=== PATIENT | male | born 1950 | race Caucasian/White ===

== ENCOUNTER 2018-10-05 15:43 | Emergency (ER) | payer MEDICARE, OTHER ==
--- NOTE | 2018-10-05 16:18 | EDM.PDOC ---
ED HPI GENERAL MEDICAL PROBLEM - General Stated Complaint: STOMACH PAIN,BLOOD IN STOOL Time Seen by Provider: 10/05/18 15:58 Source of Information: Reports: Patient, Family History Limitations: Reports: No Limitations - History of Present Illness INITIAL COMMENTS - FREE TEXT/NARRATIVE: 68 y.o.w.m with a H/o prostate CA S/P prostatectomy, came with his to the ed due to bloody stool since midnight. Pt has initially distension and a tender abdomen. The distension and tenderness of his abdomen improved after he passed soft bloody stool and has bloody loose stool since. No N/V no trauma, no abd. surgeries in the past. Pain 2/10 . No weakness or any other acute medical issues. BP 145/90 RR 16 Pulse ox 96% on RA Pulse 107 Temp 36.7 Onset: Today, Sudden Onset Date: 10/05/18 Onset Time: 12:00 Duration: Hour(s):, Intermittent Location: Reports: Abdomen Quality: Reports: Dull, Other (bloody stool since midnight) Severity: Moderate Improves with: Reports: None Worsens with: Reports: None Context: Reports: Other (H/O prostate CA) Associated Symptoms: Reports: No Other Symptoms Abdominal Pain Score (Numeric/FACES): 2 - Related Data Allergies Allergy/AdvReac Type Severity Reaction Status Date / Time No Known Allergies Allergy Verified 10/05/18 16:06 Home Meds: Home Meds Ciprofloxacin HCl [Cipro] 500 mg PO BID #20 tablet 10/05/18 [Rx] Lisinopril 20 mg PO DAILY 10/05/18 [History] atorvaSTATin [Lipitor] 20 mg PO DAILY 10/05/18 [History] metroNIDAZOLE [Flagyl] 500 mg PO Q8H #30 tab 10/05/18 [Rx] ED ROS GENERAL - Review of Systems Review Of Systems: See Below Constitutional: Reports: No Symptoms HEENT: Reports: No Symptoms Respiratory: Reports: No Symptoms Cardiovascular: Reports: No Symptoms Endocrine: Reports: No Symptoms GI/Abdominal: Reports: No Symptoms : Reports: No Symptoms Musculoskeletal: Reports: No Symptoms Skin: Reports: No Symptoms Neurological: Reports: No Symptoms Psychiatric: Reports: No Symptoms Hematologic/Lymphatic: Reports: No Symptoms Immunologic: Reports: No Symptoms ED EXAM, GI/ABD - Physical Exam Exam: See Below Exam Limited By: No Limitations General Appearance: Alert, WD/WN, Mild Distress Eyes: Bilateral: Normal Appearance Ears: Normal External Exam Nose: Normal Inspection Throat/Mouth: Normal Lips, Normal Voice, No Airway Compromise Head: Atraumatic, Normocephalic Neck: Normal Inspection, Supple, Non-Tender, Full Range of Motion Respiratory/Chest: No Respiratory Distress Cardiovascular: Normal Peripheral Pulses, Regular Rate, Rhythm GI/Abdominal Exam: Normal Bowel Sounds, Soft, No Organomegaly, No Distention, No Abnormal Bruit, No Mass, Pelvis Stable (Male) Exam: Deferred Rectal (Males) Exam: Deferred Back Exam: Normal Inspection, Full Range of Motion Extremities: Normal Inspection, Normal Range of Motion, Non-Tender, No Pedal Edema, Normal Capillary Refill Neurological: Alert, Oriented, CN II-XII Intact, Normal Cognition, Normal Gait, No Motor/Sensory Deficits Psychiatric: Normal Affect Skin Exam: Warm, Dry, Intact, Normal Color, No Rash Lymphatic: No Adenopathy Course - Vital Signs Text/Narrative:: 68 y.o.w.m with a H/o prostate CA S/P prostatectomy, came with his to the ed due to bloody stool since midnight. Pt has initially distension and a tender abdomen. The distension and tenderness of his abdomen improved after he passed soft bloody stool and has bloody loose stool since. No N/V no trauma, no abd. surgeries in the past. Pain 2/10 . No weakness or any other acute medical issues. BP 145/90 RR 16 Pulse ox 96% on RA Pulse 107 Temp 36.7 PE: WNWD WM with bloody stool since midnight. Imaging: CT abd/pelvis: Transverse and dec. colon thickening of the wall of the colon suggestive Ulcerative colitis, as per RAD Labs; CBC, nl INR 1.03 nl (1.03) (second draw, initially 5.13) BMP nl UA nl. BUN is 19, HGB is 17.4, HCT 53.4, however. Impression: Transverse and dec. colon thickening of the wall, suggestive Ulcerative colitis, hematochezia. S/P Prostatectomy Tx: Cipro, Flagyl 7.01 pm Consultation: Dr. Machado, GI specialist, [facility]: Repeat INR, PT. Give Cipro and Flagyl for UC as an initial Tx. Reexam: Repeat INR test was nl, pt symptoms improved. Plan: D/C with instructions. CD disk and lab results were handed to the Pt at the time of discharge from the ED Last Recorded V/S: Last Vital Signs Temp 36.4 C 10/05/18 18:41 Pulse 63 10/05/18 18:41 Resp 16 10/05/18 18:41 BP 149/83 H 10/05/18 18:41 Pulse Ox 97 10/05/18 18:41 - Orders/Labs/Meds Orders: Active Orders 24 hr Category Date Time Status Abdomen Pelvis w Cont [CT] Stat Exams 10/05/18 16:03 Taken Peripheral IV Insertion Adult [OM.PC] Routine Oth 10/05/18 16:40 Ordered Labs: Laboratory Tests 10/05/18 10/05/18 10/05/18 Range/Units 16:23 16:23 16:23 WBC 11.2 (4.5-12.0) X10-3/uL RBC 6.28 H (4.30-5.75) x10(6)uL Hgb 17.4 H (11.5-15.5) g/dL Hct 53.4 H (30.0-51.3) % MCV 85.0 (80-96) fL MCH 27.7 (27.7-33.6) pg MCHC 32.6 (32.2-35.4) g/dL RDW 12.8 (11.5-15.5) % Plt Count 176 (125-369) X10(3)uL MPV 10.1 (7.4-10.4) fL Neut % (Auto) 75.7 (46-82) % Lymph % (Auto) 15.9 (13-37) % Ashley % (Auto) 7.2 (4-12) % Eos % (Auto) 1 (1.0-5.0) % Baso % (Auto) 0 (0-2) % Neut # (Auto) 8.5 H (1.6-8.3) # Lymph # (Auto) 1.8 (0.6-5.0) # Ashley # (Auto) 0.8 (0.0-1.3) # Eos # (Auto) 0.1 (0.0-0.8) # Baso # (Auto) 0.0 (0.0-0.2) # PT 49.0 H* (8.7-11.1) INR 5.13 H* (0.89-1.13) Sodium 137 (135-145) mmol/L Potassium 3.9 (3.5-5.3) mmol/L Chloride 101 (100-110) mmol/L Carbon Dioxide 28 (21-32) mmol/L BUN 19 H (7-18) mg/dL Creatinine 1.2 (0.70-1.30) mg/dL Est Cr Clr Drug Dosing 61.68 mL/min Estimated GFR (MDRD) > 60 (>60) BUN/Creatinine Ratio 15.8 (9-20) Glucose 102 (80-116) mg/dL Calcium 10.0 (8.6-10.2) mg/dL Total Bilirubin (0.1-1.3) mg/dL Direct Bilirubin (0.10-0.20) mg/dL AST (5-25) IU/L ALT (12-36) U/L Alkaline Phosphatase (56-112) IU/L Total Protein (6.0-8.0) g/dL Albumin (3.2-4.6) g/dL Amylase (25-115) U/L Urine Color (YELLOW) Urine Appearance (CLEAR) Urine pH (5.0-6.5) Ur Specific [place] (1.010-1.025) Urine Protein (NEGATIVE) mg/dL Urine Glucose (UA) (NEGATIVE) mg/dL Urine Ketones (NEGATIVE) mg/dL Urine Occult Blood (NEGATIVE) Urine Nitrite (NEGATIVE) Urine Bilirubin (NEGATIVE) Urine Urobilinogen (NEGATIVE) mg/dL Ur Leukocyte Esterase (NEGATIVE) Urine RBC (0) Urine WBC (0) Ur Squamous Epith Cells (NS,R,O) Urine Bacteria (NS) 10/05/18 10/05/18 10/05/18 Range/Units 16:23 16:55 19:23 WBC (4.5-12.0) X10-3/uL RBC (4.30-5.75) x10(6)uL Hgb (11.5-15.5) g/dL Hct (30.0-51.3) % MCV (80-96) fL MCH (27.7-33.6) pg MCHC (32.2-35.4) g/dL RDW (11.5-15.5) % Plt Count (125-369) X10(3)uL MPV (7.4-10.4) fL Neut % (Auto) (46-82) % Lymph % (Auto) (13-37) % Ashley % (Auto) (4-12) % Eos % (Auto) (1.0-5.0) % Baso % (Auto) (0-2) % Neut # (Auto) (1.6-8.3) # Lymph # (Auto) (0.6-5.0) # Ashley # (Auto) (0.0-1.3) # Eos # (Auto) (0.0-0.8) # Baso # (Auto) (0.0-0.2) # PT 10.0 (8.7-11.1) INR 1.03 (0.89-1.13) Sodium (135-145) mmol/L Potassium (3.5-5.3) mmol/L Chloride (100-110) mmol/L Carbon Dioxide (21-32) mmol/L BUN (7-18) mg/dL Creatinine (0.70-1.30) mg/dL Est Cr Clr Drug Dosing mL/min Estimated GFR (MDRD) (>60) BUN/Creatinine Ratio (9-20) Glucose (80-116) mg/dL Calcium (8.6-10.2) mg/dL Total Bilirubin 0.5 (0.1-1.3) mg/dL Direct Bilirubin 0.16 (0.10-0.20) mg/dL AST 21 (5-25) IU/L ALT 53 H (12-36) U/L Alkaline Phosphatase 111 (56-112) IU/L Total Protein 7.9 (6.0-8.0) g/dL Albumin 4.0 (3.2-4.6) g/dL Amylase 26 (25-115) U/L Urine Color Yellow (YELLOW) Urine Appearance Clear (CLEAR) Urine pH 5.0 (5.0-6.5) Ur Specific [place] 1.025 (1.010-1.025) Urine Protein Negative (NEGATIVE) mg/dL Urine Glucose (UA) Normal (NEGATIVE) mg/dL Urine Ketones Negative (NEGATIVE) mg/dL Urine Occult Blood Negative (NEGATIVE) Urine Nitrite Negative (NEGATIVE) Urine Bilirubin Negative (NEGATIVE) Urine Urobilinogen Normal (NEGATIVE) mg/dL Ur Leukocyte Esterase Negative (NEGATIVE) Urine RBC 0-5 (0) Urine WBC 0-5 (0) Ur Squamous Epith Cells Rare (NS,R,O) Urine Bacteria Few H (NS) Meds: Medications Discontinued Medications Generic Name Dose Route Start Last Admin Trade Name Freq PRN Reason Stop Dose Admin Ciprofloxacin 500 mg 10/05/18 19:11 10/05/18 19:16 Ciprofloxacin Hcl PO 10/05/18 19:12 500 mg ONETIME ONE Administration Diatrizoate Meglum/Diatrizoate Sod 30 ml 10/05/18 19:30 10/05/18 18:17 Gastrografin 37% PO 30 ml . DIRECTED BETHANY Administration Iopamidol 100 ml 10/05/18 19:16 10/05/18 18:17 Isovue-370 (76%) IV 10/05/18 19:17 100 ml . DIRECTED ONE Administration Metronidazole 500 mg 10/05/18 19:15 10/05/18 19:16 Flagyl PO 500 mg Q8H BETHANY Administration Sodium Chloride 10 ml 10/05/18 16:40 10/05/18 16:40 Saline Flush FLUSH 10 ml ASDIRECTED PRN Administration Keep Vein Open Departure - Departure Time of Disposition: 19:16 Disposition: Home, Self-Care 01 Condition: Good Clinical Impression: Hematochezia Ulcerative colitis with rectal bleeding Qualifiers: Ulcerative colitis location: other ulcerative colitis Qualified Code(s): K51.811 - Other ulcerative colitis with rectal bleeding - Discharge Information Prescriptions: Ciprofloxacin HCl [Cipro] 500 mg PO BID #20 tablet metroNIDAZOLE [Flagyl] 500 mg PO Q8H #30 tab Instructions: Ulcerative Colitis, Adult, Ciprofloxacin tablets, Metronidazole tablets or capsules Referrals: PCP,Not In Area [Primary Care Provider] - Forms: ED Department Discharge Additional Instructions: Please take the Abx -Cipro and Flagyl- as recommended, please follow up with your GI specialist, please come back if your symptoms get worse acutely. - My Orders Last 24 Hours: My Active Orders 10/05/18 16:03 Abdomen Pelvis w Cont [CT] Stat 10/05/18 16:40 Peripheral IV Insertion Adult [OM.PC] Routine - Assessment/Plan Last 24 Hours: My Active Orders 10/05/18 16:03 Abdomen Pelvis w Cont [CT] Stat 10/05/18 16:40 Peripheral IV Insertion Adult [OM.PC] Routine
[2018-10-05] MEDS ORDERED: Sodium Chloride 0.9% 10 ML Syringe FLUSH PRN (16:40)
[2018-10-05] MEDS ORDERED: Ciprofloxacin 500 MG Tab PO ONE (19:11)
[2018-10-05] MEDS ORDERED: metroNIDAZOLE 500 MG Tab PO SCH (19:15)
[2018-10-05] MEDS ORDERED: Iopamidol 755 Mg/ML 100 ML Bottle IV ONE (19:16)
[2018-10-05] MEDS ORDERED: Diatrizoate Meglumine/Diatrizoate Sodium 37% 30 ML Bottle PO SCH (19:30)
--- NOTE | 2018-10-08 08:40 | CT ---
INDICATION: Abdominal pain, bloody stool. CT ABDOMEN AND PELVIS WITH ORAL, IV, AND RECTAL CONTRAST: Spiral 3.75 mm axial sections were obtained through the abdomen and pelvis with sagittal and coronal reconstructions, 10/05/18 - no comparisons. Total exam DLP = 1,091.81 mGy-cm. Lower lung shah and pleural spaces visualized appeared normal. The heart is not enlarged. No pericardial effusion is seen. There is thickening of the wall of the distal transverse colon, most severe at the hepatic flexure and also in the descending colon but extending into the sigmoid area to a lesser degree. There are diverticula in the sigmoid colon. There is pericolonic fat stranding in the pericolic gutter and also in the splenic flexure area. Findings are compatible with colitis, likely ulcerative type, with this patients history. No liver lesions of any significance could be identified with one tiny cyst seen on axial image #26. No gallstones were demonstrated. The adrenal glands, spleen, and pancreas appeared essentially normal with what appears to be a splenule at the splenic hilum. The kidneys showed evidence of some mild renal cortical scarring and multiple cystic changes. The largest of the cysts on the right was 28.5 mm, mid pole area, posteromedially, extending into the parapelvic area. The largest on the left was relatively small at 27.9 mm at the lower pole of the left kidney. No obstructive uropathy was seen. No retroperitoneal masses were identified. The appendix appeared normal, visualized on axial images #77 through #87. No additional organomegaly, mass lesions, or free fluid collections were identified. The prostate is absent, compatible with history of prostatectomy. Bilateral inguinal hernias are noted, including only fat. Urinary bladder was unremarkable. Degenerative changes and disk disease are noted at L5-S1. A degree of disk disease is also suggested at L3-4 and probable L4-5, as well as L2-3. A minimal dextroconcave scoliosis of the lumbar spine is noted. IMPRESSION: 1. Findings felt to be compatible with colitis, possibly ulcerative type, involving the distal transverse through the sigmoid colon area, most severe in the hepatic flexure area and descending colon with pericolonic fat stranding of mild degree. No free air or definite abscess formation identified, however. 2. Degenerative changes and disk disease lumbosacral spine. 3. Multicystic changes in the kidneys. 4. Tiny cyst in the right lobe of the liver. 5. Mild dextroconcave scoliosis lumbar spine. 6. Bilateral fat-containing inguinal hernias of small size. Report was called to Dr. Garcia at 1842 hours on 10/05/18. [facility]
== END 2018-10-05 20:08 | disposition home or self-care (01) ==
LOC: FB.ED 15:43
DX: K51.811 Other ulcerative colitis with rectal bleeding (principal); K92.1 Melena; Z79.899 Other long term (current) drug therapy; Z90.79 Acquired absence of other genital organ(s); Z85.46 Personal history of malignant neoplasm of prostate
CPT/HCPCS: 36415; 74177; 80048; 80076; 81001; 82150; 85025; 85610; 99284; A9270; Q9963; Q9967